=== PATIENT | male | born 1985 | race Two or more races ===

== ENCOUNTER 2019-10-22 20:48 | Emergency (ER) | payer SELFPAY ==
--- NOTE | 2019-10-22 21:12 | EDM.PDOC ---
ED HPI GENERAL MEDICAL PROBLEM - General Chief Complaint: General Stated Complaint: SICK Time Seen by Provider: 10/22/19 21:09 - History of Present Illness INITIAL COMMENTS - FREE TEXT/NARRATIVE: HISTORY AND PHYSICAL: History of present illness: Patient 34-year-old male with no significant past medical history presents with a concern of cough congestion fever 3 days he denies shortness of breath denies abdominal pain he states he has had some diarrhea denies urinary symptoms he did not receive influenza immunization this year. Review of systems: As per history of present illness and below otherwise all systems reviewed and negative. Past medical history: As per history of present illness and as reviewed below otherwise noncontributory. Surgical history: As per history of present illness and as reviewed below otherwise noncontributory. Social history: No reported history of drug or alcohol abuse. Family history: As per history of present illness and as reviewed below otherwise noncontributory. Physical exam: HEENT: Atraumatic, normocephalic, pupils reactive, negative for conjunctival pallor or scleral icterus, mucous membranes moist, throat clear, neck supple, nontender, trachea midline. Lungs: Clear to auscultation, breath sounds equal bilaterally, chest nontender. Heart: S1S2, regular, negative for clicks, rubs, or JVD. Abdomen: Soft, nondistended, nontender. Negative for masses or hepatosplenomegaly. Negative for costovertebral tenderness. Pelvis: Stable nontender. Genitourinary: Deferred. Rectal: Deferred. Extremities: Atraumatic, negative for cords or calf pain. Neurovascular unremarkable. Neuro: Awake, alert, oriented. Cranial nerves II through XII unremarkable. Cerebellum unremarkable. Motor and sensory unremarkable throughout. Exam nonfocal. Diagnostics: CBC CMP influenza screen rapid strep chest x-ray Therapeutics: Saline 1 L bolus Impression: #1 viral syndrome Definitive disposition and diagnosis as appropriate pending reevaluation and review of above. - Related Data Allergies Allergy/AdvReac Type Severity Reaction Status Date / Time No Known Allergies Allergy Verified 10/22/19 21:09 Home Meds: Home Meds . [No Known Home Meds] 10/22/19 [History] ED ROS GENERAL - Review of Systems Review Of Systems: Comprehensive ROS is negative, except as noted in HPI. ED EXAM, GENERAL - Physical Exam Exam: See Below (dictation) Course - Vital Signs Last Recorded V/S: Last Vital Signs Temp 35.8 C 10/22/19 21:09 Pulse 54 L 10/22/19 21:09 Resp 18 10/22/19 21:09 BP 123/75 10/22/19 21:09 Pulse Ox 97 10/22/19 21:09 - Orders/Labs/Meds Orders: Active Orders 24 hr Category Date Time Status RT Aerosol Therapy [RC] ASDIRECTED Care 10/22/19 22:33 Active CULTURE STREP A CONFIRMATION [] Stat Lab 10/22/19 21:15 Results STREP SCRN A RAPID W CULT CONF [] Stat Lab 10/22/19 21:15 Results Labs: Laboratory Tests 10/22/19 10/22/19 10/22/19 Range/Units 21:26 21:37 21:37 WBC 6.01 (4.0-11.0) K/uL RBC 4.88 (4.50-5.90) M/uL Hgb 15.6 (13.0-17.0) g/dL Hct 44.5 (38.0-50.0) % MCV 91.2 (80.0-98.0) fL MCH 32.0 (27.0-32.0) pg MCHC 35.1 (31.0-37.0) g/dL RDW Std Deviation 42.8 (28.0-62.0) fl RDW Coeff of Edgardo 13 (11.0-15.0) % Plt Count 229 (150-400) K/uL MPV 9.70 (7.40-12.00) fL Neut % (Auto) 66.6 (48.0-80.0) % Lymph % (Auto) 21.0 (16.0-40.0) % [place] % (Auto) 10.0 (0.0-15.0) % Eos % (Auto) 2.2 (0.0-7.0) % Baso % (Auto) 0.2 (0.0-1.5) % Neut # (Auto) 4.0 (1.4-5.7) K/uL Lymph # (Auto) 1.3 (0.6-2.4) K/uL [place] # (Auto) 0.6 (0.0-0.8) K/uL Eos # (Auto) 0.1 (0.0-0.7) K/uL Baso # (Auto) 0.0 (0.0-0.1) K/uL Nucleated RBC % 0.0 /100WBC Nucleated RBCs # 0 K/uL Sodium 137 (136-148) mmol/L Potassium 4.0 (3.5-5.1) mmol/L Chloride 101 (98-107) mmol/L Carbon Dioxide 26.9 (21.0-32.0) mmol/L BUN 20 H (7.0-18.0) mg/dL Creatinine 0.6 L (0.8-1.3) mg/dL Est Cr Clr Drug Dosing 150.90 mL/min Estimated GFR (MDRD) > 60.0 ml/min Glucose 101 (74-106) mg/dL Calcium 9.1 (8.5-10.1) mg/dL Total Bilirubin 0.9 (0.2-1.0) mg/dL AST 29 (15-37) IU/L ALT 33 (14-63) IU/L Alkaline Phosphatase 74 (46-116) U/L Total Protein 7.5 (6.4-8.2) g/dL Albumin 4.1 (3.4-5.0) g/dL Globulin 3.4 (2.6-4.0) g/dL Albumin/Globulin Ratio 1.2 (0.9-1.6) Urine Color YELLOW Urine Appearance CLEAR Urine pH 6.0 (5.0-8.0) Ur Specific [place] 1.025 (1.001-1.035) Urine Protein NEGATIVE (NEGATIVE) mg/dL Urine Glucose (UA) NEGATIVE (NEGATIVE) mg/dL Urine Ketones NEGATIVE (NEGATIVE) mg/dL Urine Occult Blood NEGATIVE (NEGATIVE) Urine Nitrite NEGATIVE (NEGATIVE) Urine Bilirubin NEGATIVE (NEGATIVE) Urine Urobilinogen 0.2 (<2.0) EU/dL Ur Leukocyte Esterase NEGATIVE (NEGATIVE) Urine RBC 0-1 (0-2/HPF) Urine WBC 0-1 (0-5/HPF) Ur Epithelial Cells RARE (NONE-FEW) Urine Bacteria RARE (NEGATIVE) Meds: Medications Discontinued Medications Generic Name Dose Route Start Last Admin Trade Name Freq PRN Reason Stop Dose Admin Albuterol/Ipratropium 3 ml 10/22/19 22:31 10/22/19 23:03 Duoneb 3.0-0.5 Mg/3 Ml NEB 10/22/19 22:32 3 ml ONETIME ONE Administration Sodium Chloride 1,000 mls @ 999 mls/hr 10/22/19 21:16 10/22/19 21:38 Normal Saline IV 10/22/19 22:16 999 mls/hr .Bolus ONE Administration Iopamidol 100 ml 10/22/19 22:54 10/22/19 22:55 Isovue-370 (76%) IVPUSH 10/22/19 22:55 100 ml ONETIME ONE Administration Departure - Departure Time of Disposition: 23:45 Disposition: Home, Self-Care 01 Condition: Good Clinical Impression: Pneumonitis, History of lobectomy of lung, Chronic lung disease - Discharge Information Referrals: PCP,None [Primary Care Provider] - Forms: ED Department Discharge Additional Instructions: The following information is given to patients seen in the emergency department who are being discharged to home. This information is to outline your options for follow-up care. We provide all patients seen in our emergency department with a follow-up referral. The need for follow-up, as well as the timing and circumstances, are variable depending upon the specifics of your emergency department visit. If you don't have a primary care physician on staff, we will provide you with a referral. We always advise you to contact your personal physician following an emergency department visit to inform them of the circumstance of the visit and for follow-up with them and/or the need for any referrals to a consulting specialist. The emergency department will also refer you to a specialist when appropriate. This referral assures that you have the opportunity for followup care with a specialist. All of these measure are taken in an effort to provide you with optimal care, which includes your followup. Under all circumstances we always encourage you to contact your private physician who remains a resource for coordinating your care. When calling for followup care, please make the office aware that this follow-up is from your recent emergency room visit. If for any reason you are refused follow-up, please contact the [facility] emergency department at and asked to speak to the emergency department charge nurse. Levaquin incentive spirometry as discussed follow-up primary care albuterol as prescribed return as needed as discussed Sepsis Event Note - Focused Exam Vital Signs: Vital Signs Temp Pulse Resp BP Pulse Ox 10/22/19 21:09 35.8 C 54 L 18 123/75 97 - My Orders Last 24 Hours: My Active Orders 10/22/19 21:15 CULTURE STREP A CONFIRMATION [RM] Stat STREP SCRN A RAPID W CULT CONF [RM] Stat 10/22/19 22:33 RT Aerosol Therapy [RC] ASDIRECTED - Assessment/Plan Last 24 Hours: My Active Orders 10/22/19 21:15 CULTURE STREP A CONFIRMATION [RM] Stat STREP SCRN A RAPID W CULT CONF [RM] Stat 10/22/19 22:33 RT Aerosol Therapy [RC] ASDIRECTED
[2019-10-22] MEDS ORDERED: Sodium Chloride 0.9% 1,000 ML IV ONE (21:16)
--- NOTE | 2019-10-22 21:57 | CR ---
INDICATION: Cough TECHNIQUE: Chest radiograph 1 view COMPARISON: None FINDINGS: Mediastinum: There is volume loss in left hemithorax with leftward mediastinal shift. The heart silhouette is normal in size and morphology. Lung: Consolidation of the left lung is noted with a small amount of aerated left apex seen. A cluster of tiny granulomas are noted in the right upper lung zone and right midlung. No right pleural effusion seen. Evaluation for left pleural effusion is limited by the consolidation present. No pneumothorax is identified. Bone and Soft tissue: Unremarkable for age. IMPRESSION: 1. Consolidation of the left lung is noted with a small amount of aerated left apex seen. Findings are likely due to near complete atelectasis the left lung. Evaluation with bronchoscopy may be helpful to exclude a central obstructing lesion. Dictated by Aris Hearn MD @ 10/22/2019 9:56:34 PM Dictated by: Aris Hearn MD @ 10/22/2019 21:56:49 (Electronically Signed)
[2019-10-22 22:13] LABS: BLOOD UREA NITROGEN,BUN 20 mg/dL (7.0-18.0); CARBON DIOXIDE,CO2 26.9 mmol/L (21.0-32.0); CHLORIDE,CL 101 mmol/L (98-107); GLUCOSE RANDOM 101 mg/dL (74-106); SODIUM,NA 137 mmol/L (136-148)
[2019-10-22] MEDS ORDERED: Albuterol/Ipratropium 3.0-0.5 MG/3 ML Neb Soln NEB ONE (22:31)
[2019-10-22] MEDS ORDERED: Iopamidol 755 Mg/ML 100 ML Bottle IVPUSH ONE (22:54)
--- NOTE | 2019-10-22 23:32 | CT ---
INDICATION: Chest pain. Shortness of breath. CT CHEST WITH CONTRAST TECHNIQUE: Multidetector CT imaging was performed through the chest following intravenous contrast administration using 75 mL Isovue 370. Coronal and sagittal reconstructions were generated. COMPARISON: None. FINDINGS: Lungs and airways: Complete collapse of the left lung with marked volume loss associated with elevation of the left diaphragm, marked leftward shift of the heart and mediastinum, and compensatory hyperexpansion of the right lung. There is bronchiectasis within the atelectatic left lung, numerous calcifications within the collapsed left lung parenchyma, and an appearance suggesting this may represent a chronic finding. The right lung contains innumerable small subcentimeter nodules, many of which are calcified consistent with calcified granulomas while others are noncalcified. There is nonspecific mild mosaic attenuation throughout the right lung, as well as minimal tree-in-bud infiltrate in the right upper lobe. Pleura and pleural spaces: No pleural effusions or pneumothorax. Heart and mediastinum: Normal heart size. No significant pericardial effusion. No pathologically enlarged mediastinal lymph nodes. Vascular structures: Normal caliber aorta. Chest wall and axillae: No mass or axillary lymphadenopathy. Osseous structures: Normal for age. No acute fractures identified. Upper abdomen: Small nonobstructing right intrarenal stone. IMPRESSION: 1. Complete atelectasis of the left lung as detailed above. Left-sided bronchiectasis is present and there are numerous calcifications within the collapsed left lung parenchyma, suggesting that these findings are chronic. 2. Nonspecific mild mosaic attenuation throughout the right lung and subtle right upper lobe tree-in-bud infiltrate. An infectious etiology is not excluded. 3. Numerous tiny calcified and noncalcified right lung nodules. DANNI MONROY MD [employer] Dictated by Dejuan Monroy MD @ 10/22/2019 11:25:45 PM Dictated by: Dejuan Monroy MD @ 10/22/2019 23:30:22 (Electronically Signed)
== END 2019-10-23 00:11 | disposition home or self-care (01) ==
LOC: MW.ED 20:48
DX: J18.9 Pneumonia, unspecified organism (principal); J98.4 Other disorders of lung; B34.9 Viral infection, unspecified
CPT/HCPCS: 36415; 71045; 71260; 80053; 81001; 85025; 87081; 87804; 87880; 94640; 96360; 99284; J7030; Q9967; 99282; J7620-GY